=== PATIENT | male | born 1940 | race Caucasian/White ===

== ENCOUNTER → 2024-05-01 | Outpatient (CLI) | payer MEDICARE ==
[~2024-05-01] MED LIST: ACET-2247 PO; ASPI-1443 PO; BISO5TAB19 PO; CHOL200059 PO; FERR-82 PO; LEVO50CA4 PO; LOSA25TA41 PO; OMEP40CA21 PO; SIMV10TA97 PO; VITA1CAP85 PO
--- NOTE | 2024-05-05 18:02 | HMCSR ---
APPROVED REPORT EXAM: Two-dimensional and M-mode echocardiogram with Doppler and color Doppler. INDICATION ICD: I48.24 2D Dimensions RVDd4.1 cmLVEF(%)52.8 (>50%)LVED Vol(simp.)85.5 mL IVSd1.0 (0.7-1.1cm)FS(%)27 %LVES Vol(simp.)47.2 mL LVDd4.1 (3.8-5.6cm)LA (2D)5.8 (1.6-4.0cm)LVEF(%, simp.)45 % PWd1.3 (0.7-1.1cm)Ao Root(2D)3.5 (2.0-3.7cm)LA ESV INDEX (4CH)95.10 mL/m2 IVSs1.1 cmLVOT diam2.1 (1.8-2.4cm)LA ESV INDEX (2CH)89.70 mL/m2 LVDs3.0 (2.5-4.0cm)LA ESV INDEX (BP)101.50 mL/m2 PWs1.9 cm Aortic Valve AoV VTI0.3 mAo Mean GR4.0 mmHgLVOT VTI0.13 m ANTWON (VMAX)1.7 cm2AVA (VTI) 1.7 cm2 Mitral Valve MV E Vmax84.9 cm/sDECEL Ihpd859 ms MR Max PG107 mmHgP 1/2 T46 ms MVA (PHT)4.8 cm2 TDI E/E' Dnoifj76.0E/E' Lateral6.7 Medial E' Peak V8.50 cm/sLateral E' Peak V12.70 cm/s Pulmonary Valve PV Vmax0.6 m/s PV Peak GR1.5 mmHg Tricuspid Valve TR Vmax2.8 m/sRAP (EST) 15 hgAkAAFA78.4 mmHg TR Peak GR32.4 mmHg Left Ventricle The left ventricle is normal size. There is normal left ventricular wall thickness. LVEF is -45%. The left ventricular diastolic function is normal. Right Ventricle The right ventricle is normal size. Right ventricular systolic function is reduced. Device lead is pr esent in the right ventricle. Atria The left atrium is significantly markedly dilated. LASVI 102mL/m. The right atrium is markedly dilat ed with 246mL of volume. Aortic Valve Aortic valve is trileaflet, mildly sclerotic and opens well. No aortic regurgitation is present. Ther e is no aortic valvular stenosis. Mitral Valve The mitral valve is normal in structure. There is mild mitral valve regurgitation noted. There is no mitral valve stenosis. Tricuspid Valve The tricuspid valve is normal in structure. There is mild tricuspid valve regurgitation noted. Pulmonic Valve The pulmonary valve is normal in structure. There is no pulmonic valvular regurgitation. Great Vessels The aortic root is normal in size. IVC is dilated and collapses <50% with inspiration. Pericardium There is no pericardial effusion. Other Information Quality : Adequate Conclusion Mild LV systolic dysfunction. LVEF is -45%. Right ventricular systolic function is reduced. Device lead is present in the right ventricle. The left atrium is significantly markedly dilated. LASVI 102mL/m. The right atrium is markedly dilated with 246mL of volume. Aortic valve is trileaflet, mildly sclerotic and opens well. There is mild mitral valve regurgitation noted. There is mild tricuspid valve regurgitation noted. IVC is dilated and collapses <50% with inspiration.
== END | disposition home or self-care (01) ==
LOC: SHCH 09:42
PROVIDERS: ATTEND Internal Medicine Cardiovascular Disease
DX: I08.3 Combined rheumatic disorders of mitral, aortic and tricuspid valves (principal); I48.21 Permanent atrial fibrillation
CPT/HCPCS: 93306

== ENCOUNTER 2024-05-06 07:28 | Day surgery (SDC) | payer MEDICARE ==
[2024-05-04 11:12] LABS: BASOPHILS # (AUTO) 0.03 K/uL (0.00-0.20); BASOPHILS % (AUTO) 0.4 % (0.0-5.0); EOSINOPHILS % (AUTO) 1.5 % (0.0-8.0); HEMATOCRIT 41.5 % (42-54); IMMATURE GRANULOCYTE ABSOLUTE 0.03 K/uL (0-1); LYMPHOCYTES # (AUTO) 0.8 K/uL (1.0-4.8); MEAN CORPUSCULAR HEMOGLOBIN 33.1 pg (27.0-33.0); MEAN CORPUSCULAR HGB CONC 32.8 g/dL (32.0-36.0); MONOCYTES # (AUTO) 0.9 K/uL (0.1-1.0); NEUTROPHILS # (AUTO) 4.9 K/uL (1.8-7.7); NEUTROPHILS % (AUTO) 72.7 % (40.0-77.0); PLATELET COUNT (AUTO) 206 K/uL (130-400); RED BLOOD CELL COUNT(AUTO) 4.11 MIL/uL (4.50-6.20); WHITE BLOOD COUNT (AUTO) 6.8 K/uL (4.8-10.8)
[2024-05-04 11:16] LABS: CREATININE 1.1 mg/dL (0.5-1.3); POTASSIUM 5.1 mmol/L (3.5-5.1)
[2024-05-04 11:18] VITALS: BP 107/65; PULSE 65; RESP 18; TEMP 97.3
--- NOTE | 2024-05-04 11:22 | EKG ---
[facility] Test Date: 2024-05-04 Test Time: 11:26:17 Pat Name: BAN HELLER Department: [facility] Room: [facility] Gender: M Claims Counsel: [id number] : 1940 Requested By: CALVIN KUMAR Order Number: [id number] Reading MD: Sterling Piña Measurements Intervals [place] Rate: 65 P: 0 DC: 0 QRS: -83 QRSD: 154 T: 75 QT: 480 QTc: 507 Interpretive Statements Afib/flut and V-paced complexes No previous ECG available for comparison Electronically Signed On 05-07-2024 17:30:30 APPLICATION DEFENSE MANAGER by Sterling Piña Please click the below link to view image of tracing.
[2024-05-04 11:28] LABS: INR 1.07 (0.85-1.15); PROTHROMBIN TIME 11.9 SEC (9.6-11.6)
[2024-05-04 11:29] LABS: PARTIAL THROMBOPLASTIN TIME 29.2 SEC (26.3-35.5)
[~2024-05-06] VITALS: Ht 182.9 cm; Wt 82.1 kg
[2024-05-06] VITALS (7 sets, daily range): BP systolic 114–131; BP diastolic 71–79; PULSE 65–71; RESP 12–18; TEMP 97.1–97.5
[2024-05-06] MEDS: 0.9%NACL 1000ML 1,000 ML IV SCH (08:21)
[2024-05-06] MEDS ORDERED: LIDOCAINE HCL 1% MDV 50ML VIAL ONE (09:43)
[2024-05-06] MEDS ORDERED: BUPIvacaine/PF 0.25% 30ML VIAL IJ ONE (09:43)
[2024-05-06] MEDS ORDERED: ceFAZolin SODIUM 1 GM VIAL ONE (09:43)
[2024-05-06] MEDS ORDERED: MEPERIDINE-PF 50 MG/ML SYG ONE (10:06)
[2024-05-06] MEDS ORDERED: MIDAZOLAM HCL 1 MG/ML 2ML VIAL ONE ×2 (10:06→10:40)
[2024-05-06] MEDS ORDERED: BACITRACIN 1 EACH PACKET TP ONE (11:35)
[2024-05-06] MEDS ORDERED: TRAM50TA4 PO (12:09)
--- NOTE | 2024-05-06 12:20 | NUR ---
DRESSING LEFT UPPER CHEST. DRESSING DRY AND INTACT, NO ACTIVE BLEEDING. BEDREST X2HRS. PATIENT STATED "NO PAIN".
[2024-05-06] MEDS ORDERED: acetaMINOPHEN 500 MG TABLET PO PRN (12:30)
[2024-05-06] MEDS ORDERED: acetaMINOPHEN WITH coDEINE 1 TAB TAB PO PRN ×2 (12:30)
--- NOTE | 2024-05-06 12:35 | NUR ---
DRESSING. PRESSURE DRESSING DRY AND INTACT NO ACTIVE BLEEDING OR SWELLING NOTED TO AREA.
--- NOTE | 2024-05-06 12:50 | NUR ---
DRESSING. DRESSING DRY AND INTACT. NO SWELLING OR ACTIVE BLEEDING TO THE SITE.
--- NOTE | 2024-05-06 13:05 | NUR ---
DRESSING DRESSING DRY AND INTACT. NO ACTIVE BLEEDING NO SWELLING TO THE AREA.
--- NOTE | 2024-05-06 13:27 | NUR ---
DRESSING PRESSURE DRESSING REMOVED. DRESSING SMALL AMOUNT OF RED-HOMER DRAINAGE, NO SWELLING, OR ACTIVE BLEEDING NOTED.
--- NOTE | 2024-05-06 13:32 | NUR ---
DRESSING DRESSING REMOVED. SMALL RED-HOMER DRAINAGE TO THE DRESSING. DRY AND INTACT. NO ACTIVE BLEEDING NOTED OR SWELLING.
== END 2024-05-06 13:40 | disposition home or self-care (01) ==
LOC: DAH 07:28 → EDUNIT# 05-07 09:00
PROVIDERS: ATTEND Internal Medicine Cardiovascular Disease
DX: Z45.010 Encounter for checking and testing of cardiac pacemaker pulse generator [battery] (principal); I48.21 Permanent atrial fibrillation; I10 Essential (primary) hypertension; E03.9 Hypothyroidism, unspecified; I25.10 Atherosclerotic heart disease of native coronary artery without angina pectoris; E11.9 Type 2 diabetes mellitus without complications; E78.5 Hyperlipidemia, unspecified; Z86.73 Personal history of transient ischemic attack (TIA), and cerebral infarction without residual deficits; Z79.899 Other long term (current) drug therapy
CPT/HCPCS: 80048; 85025; 85610; 85730; 36415; 93005; 33227; C1786; J0690; J7030; J0665; J2250 ×2; J2175; J3490; A4215; A6251; A4222; A4221; A4663; A4216; A6258; A4606; A4223 ×3; 99156; 99157